=== PATIENT | male | born 1940 | race Caucasian/White ===

== ENCOUNTER 2018-07-21 13:09 | Emergency (ER) | payer MEDICARE, OTHER ==
[~2018-07-21] VITALS: Ht 162.6 cm; Wt 79.4 kg
[~2018-07-21 13:09] MED LIST: ACETAMINOPHEN325 M1 PO; ACTOS 30 MG TAB30 MG PO; ADULT LOW DOSE81 MG PO; ANTI-DIARRHEA2 MG PO; B12INJ IM; FERROUS GLUCON325 M4 PO; FISH OIL 1,0001 EAC8 PO; FLOMAX PO; FLOMAX0.4 MG PO; FLORINEF ACETA0.1 MG PO; IBUPROFEN 200200 M1 PO; LACTAID EXT4500 UNIT PO; LEVAQUIN 500 M500 M3 PO; LOPERAMIDE 2 MG2 MG PO; METHADONE HCL 110 M1 PO; NASONEX17 GM NS; NEURONTIN800 MG PO; NEXIUM40 MG PO; PRISTIQ100 MG PO; RESTASIS1 EACH OP; RHINOCORT AQUA8.6 GM; SERTRALINE HCL100 MG PO; SKELAXIN 800 M800 MG PO; TESTIM5 GM; TRAMADOL 50 MG50 MG PO; ULTRAM 50MG TAB50 MG PO; XANAX 0.25 MG0.25 MG PO; ZOFRAN4 MG PO; ZOLOFT100 MG PO; ZYPREXA5 MG PO
[2018-07-21] MEDS ORDERED: NORCO 5-325 TA1 EACH PO (13:35)
[2018-07-21] MEDS ORDERED: PROSCAR 5MG TABL5 MG PO (13:35)
[2018-07-21] MEDS ORDERED: SEROQUEL 25 MG25 M1 PO (13:35)
[2018-07-21] MEDS ORDERED: ZANAFLEX2 MG PO (13:35)
[2018-07-21] MEDS ORDERED: PRILOSEC 20 MG20 MG PO (13:36)
[2018-07-21] MEDS ORDERED: MAGOX 400400 MG PO (13:37)
[2018-07-21] MEDS ORDERED: CENTRUM SILVER1 EAC4 PO (13:37)
[2018-07-21 14:31] VITALS: BP 105/66
== END 2018-07-21 14:32 | disposition home or self-care (01) ==
LOC: M.ERS 13:09
DX: S63.253A Unspecified dislocation of left middle finger, initial encounter (principal); E11.9 Type 2 diabetes mellitus without complications; Z79.82 Long term (current) use of aspirin; Z79.899 Other long term (current) drug therapy; W22.8XXA Striking against or struck by other objects, initial encounter; Y93.89 Activity, other specified; Y92.89 Other specified places as the place of occurrence of the external cause; Y99.8 Other external cause status

== ENCOUNTER 2018-11-20 11:49 | Inpatient (IN) | payer MEDICARE, OTHER ==
[2018-11-20] VITALS (7 sets, daily range): BP systolic 101–120; BP diastolic 48–75
[~2018-11-20] VITALS: Ht 152.4 cm; Wt 74.4 kg
[~2018-11-20 11:49] MED LIST changes: +CENTRUM SILVER1 EAC4 PO; +MAGOX 400400 MG PO; +NORCO 5-325 TA1 EACH PO; +PRILOSEC 20 MG20 MG PO; +PROSCAR 5MG TABL5 MG PO; +SEROQUEL 25 MG25 M1 PO; +ZANAFLEX2 MG PO
[2018-11-20] MEDS ORDERED: ZOLOFT 50 MG TA50 MG PO (12:15)
[2018-11-20 12:33] LABS: ABSOLUTE EOSINOPHILS 0.2 thou/uL (0.0-0.7); ABSOLUTE LYMPHOCYTES 0.7 thou/uL (0.8-5.3); ABSOLUTE MONOCYTES 0.3 thou/uL (0.0-1.2); ABSOLUTE NEUTROPHILS 1.1 thou/uL (1.6-8.1); BASOPHILS 0.7 %; EOSINOPHILS 6.9 %; HEMATOCRIT 32.1 % (42.0-52.0); HEMOGLOBIN 10.8 gm/dL (14.0-18.0); LYMPHOCYTES 30.5 %; MCH 32.7 pg (26.0-34.0); MCHC 33.6 g/dL (28.0-37.0); MCV 97.3 fL (80.0-100.0); MONOCYTES 13.8 %; MPV 6.8 fl. (7.2-11.1); NUCLEATED RBCS 0 /100WBC; PLATELET COUNT* 122 thou/uL (150-400); POLYS 48.1 %; RBC 3.29 mil/uL (4.50-6.00); RDW-CV 13.1 % (10.5-14.5); WBC 2.4 thou/uL (4.0-11.0)
[2018-11-20 12:41] LABS: ANION GAP 2 mmol/L (7-16); BUN 29 mg/dL (7-18); CHLORIDE 107 mmol/L (98-107); CO2 31 mmol/L (21-32); CREATININE 1.4 mg/dL (0.6-1.3); GLUCOSE 131 mg/dL (70-99); POTASSIUM 4.4 mmol/L (3.5-5.1); SODIUM 140 mmol/L (136-145)
[2018-11-20 12:51] LABS: ALBUMIN 3.3 g/dL (3.4-5.0); ALKALINE PHOSPHATASE 110 U/L (46-116); LIPASE 54 U/L (73-393); NT-PRO BRAIN NAT PEPTIDE 165 pg/mL (<300); SGOT 26 U/L (15-37); SGPT 21 U/L (30-65); TOTAL BILIRUBIN 0.3 mg/dL (<0.1-1.0); TOTAL PROTEIN 6.1 g/dL (6.4-8.2); TROPONIN-I LEVEL <0.06 ng/mL (<0.06)
[2018-11-20 13:20] LABS: URINE BILIRUBIN NEGATIVE (Negative); URINE BLOOD TRACE (Negative); URINE CLARITY CLEAR; URINE COLOR YELLOW; URINE GLUCOSE-RANDOM NEGATIVE (Negative); URINE KETONES NEGATIVE (Negative); URINE LEUKOCYTES-REFLEX NEGATIVE (Negative); URINE NITRITE-REFLEX NEGATIVE (Negative); URINE PROTEIN NEGATIVE (Negative); URINE SPECIFIC GRAVITY 1.025 (1.005-1.030); URINE UROBILINOGEN 0.2 E.U./dl (0.2-1.0)
[2018-11-20 13:59] LABS: INFLUENZA A ANTIGEN None Detected (None Detect); INFLUENZA B ANTIGEN None Detected (None Detect)
--- NOTE | 2018-11-20 14:24 | EKG ---
[place] [address] ELECTROCARDIOGRAM REPORT Name: KEISHA MCCLENDON Room: [place] [address] ADM IN R.#: [id number] Admission: 11/20/18 Attend Phys: Keisha Charles MD Discharge: Date of : 38 Report #: [id number] THIS REPORT FOR: //name// [facility] ED Test Date: 2018-11-20 Test Time: 12:16:34 Pat Name: KEISHA MCCLENDON Department: Room: [facility] Gender: M Elastic Cutter: Baldomero LAYTON : 1940 Requested By: Johanna Washington Order Number: [id number] MD: Melvin Stafford Measurements Intervals [place]shaw Rate: 72 P: -18 HI: 199 QRS: -18 QRSD: 94 T: 3 QT: 379 QTc: 415 Interpretive Statements Sinus rhythm Borderline left axis deviation Abnormal R-wave progression, early transition Baseline wander in lead(s) V4,V5 Compared to ECG 12/05/2016 15:59:51 No significant changes Electronically Signed On 11-20-2018 14:24:18 INTERNET SITE DESIGNER by Melvin Stafford [email or web address] <ELECTRONICALLY SIGNED> By: Melvin Stafford MD, FACC 11/20/18 1424 1216 1216 Melvin Stafford MD, FAC /EPI
[2018-11-21] VITALS (7 sets, daily range): BP systolic 98–130; BP diastolic 45–74
[2018-11-21 04:50] LABS: HEMATOCRIT 29.7 % (42.0-52.0); HEMOGLOBIN 10.1 gm/dL (14.0-18.0); MCH 32.8 pg (26.0-34.0); MCV 96.5 fL (80.0-100.0); MPV 6.9 fl. (7.2-11.1); RBC 3.07 mil/uL (4.50-6.00); RDW-CV 13.1 % (10.5-14.5); WBC 2.8 thou/uL (4.0-11.0)
[2018-11-21 05:14] LABS: CALCIUM 7.6 mg/dL (8.5-10.1); CREATININE 1.3 mg/dL (0.6-1.3); MAGNESIUM 2.1 mg/dL (1.8-2.4); POTASSIUM 4.8 mmol/L (3.5-5.1)
[2018-11-22] VITALS: BP 105/53
[2018-11-22 04:00] VITALS: BP 119/64
[2018-11-22 05:16] LABS: HEMOGLOBIN 10.5 gm/dL (14.0-18.0); MCH 32.7 pg (26.0-34.0); MCHC 33.9 g/dL (28.0-37.0); MCV 96.5 fL (80.0-100.0); RBC 3.21 mil/uL (4.50-6.00); RDW-CV 12.9 % (10.5-14.5); WBC 3.7 thou/uL (4.0-11.0)
[2018-11-22 05:59] LABS: CALCIUM 8.3 mg/dL (8.5-10.1); CREATININE 1.3 mg/dL (0.6-1.3); MAGNESIUM 2.1 mg/dL (1.8-2.4); POTASSIUM 4.3 mmol/L (3.5-5.1); TOTAL BILIRUBIN 0.4 mg/dL (<0.1-1.0); TOTAL PROTEIN 5.7 g/dL (6.4-8.2)
[2018-11-22 08:00] VITALS: BP 123/81
--- NOTE | 2018-11-22 10:17 | CON ---
[address] [address] CONSULTATION Name: KEISHA MCCLENDON Room: [address] IN .R.#: [id number] Admission: 11/20/18 Attend Phys: Keisha Charles MD Discharge: Date of : 38 Report #: [id number] THIS REPORT FOR: //name// CC: Efrem Charles HISTORY OF PRESENT ILLNESS: The patient is a 77-year-old male who presents with lethargy and somnolence. Apparently, the patient has been falling asleep easily during the day. He tells me that he does not sleep well at night and wakes up several times at night with pain from scoliosis. He also does not feel rested when he wakes up in the morning. The patient sees Dr. Loaiza who is not practicing at the moment, so the patient is concerned about who he will follow up with as his primary care physician. He receives methadone 20 mg every 6 hours and at night. He is on quetiapine 25 mg at bedtime to help him sleep. He also takes sertraline 100 mg at bedtime. When the patient was admitted to the hospital. He was found to have a low white blood cell count in addition to being anemic. There was no evidence of a urinary tract infection. There was some evidence of dehydration. PAST MEDICAL HISTORY: Cardiac arrhythmia, scoliosis, orthostatic hypotension, gastroesophageal reflux, benign prostatic hypertrophy. PAST SURGICAL HISTORY: Pacemaker insertion, tonsillectomy, hernia repair, right rotator cuff repair. MEDICATIONS: Proscar 5 mg daily, quetiapine 25 mg at bedtime, magnesium 500 mg daily, multivitamin daily, Zoloft 100 mg at bedtime, methadone 20 mg 4 times a day, ibuprofen 400 mg q.4h. p.r.n. pain, vitamin B12 1000 mcg IM weekly, Florinef 1 tablet daily, ferrous sulfate 325 mg daily, hydrocodone 5 mg 4 times a day, tizanidine 2 mg 3 times a day, omeprazole 20 mg daily, aspirin 81 mg daily, gabapentin 800 mg 3 times a day, fish oil daily, tamsulosin 0.4 mg at bedtime, Nexium 40 mg daily. ALLERGIES: PROMETHAZINE. PHYSICAL EXAMINATION: VITAL SIGNS: Temperature 36.7, pulse rate 73, respiratory rate 16, blood pressure 125/57. Orthostatic blood pressures were done. The patient's lying blood pressure was 115/69, sitting blood pressure 113/73 and standing blood pressure 114/69, bedside pulse oximetry 97% on room air. LABORATORY WORK: White blood cell count 2.8, hemoglobin 10.1, hematocrit 29.7, MCV 96.5, platelet count 119,000. Urinalysis shows only trace blood. Chemistry: Sodium 141, potassium 4.8, chloride 110, carbon dioxide 28, BUN 26, [place] [address] CONSULTATION Name: KEISHA MCCLENDON Room: [address] IN [facility].#: [id number] Admission: 11/20/18 Attend Phys: Keisha Charles MD Discharge: Date of : 38 Report #: [id number] creatinine 1.3, GFR 53, glucose 86, lactic acid 0.7, calcium 7.6, magnesium 2.1. Iron 57, TIBC 165, iron saturation 35%. Total bilirubin 0.3, AST 26, ALT 21, alkaline phosphatase 110, creatinine kinase 331. Total protein 6.1, albumin 3.3, proBNP 165, lipase 54, B12 454, vitamin D 48.5, TSH 1.778. NEUROLOGIC EXAMINATION: Cranial nerves 2-12 are grossly intact. Motor exam demonstrates symmetrical strength in all 4 extremities with tone and bulk normal. Reflexes are symmetrical throughout. Plantar responses are flexor. Coordination reveals intact [id number]. IMPRESSION: The patient does not appear to have any significant cognitive dysfunction at this point. He was able to provide a very coherent and detailed history. I am concerned about the patient's medications, particularly methadone 80 mg daily, gabapentin 1586-8658 mg daily, quetiapine 25 mg at bedtime and sertraline 100 mg at bedtime and tizanidine 2 mg 3 times a day. All of these medications can cause drowsiness during the day, which will make it difficult for the patient to sleep at night. If the patient is having this much pain, I would recommend a pain management referral, which can be done as an outpatient. I would also try to reduce and perhaps discontinue some of his medications while he is in the hospital. I am going to discontinue tizanidine, which is well known to cause drowsiness. Perhaps trazodone could be given in place of quetiapine. Given the patient's age, the use of an antipsychotic at bedtime can be problematic. I thank you for your kind referral of the patient and we will continue to follow him with you. <ELECTRONICALLY SIGNED> By: Kaylene Randolph DO 11/22/18 1017 0944 [id number] Randolph DO /nt
[2018-11-22 12:00] VITALS: BP 134/81
[2018-11-22 16:00] VITALS: BP 125/72
[2018-11-22 20:00] VITALS: BP 132/78
[2018-11-23] VITALS (7 sets, daily range): BP systolic 104–144; BP diastolic 66–75
[2018-11-23 05:37] LABS: HEMATOCRIT 31.1 % (42.0-52.0); HEMOGLOBIN 10.6 gm/dL (14.0-18.0); MCH 32.8 pg (26.0-34.0); MCHC 34.2 g/dL (28.0-37.0); MCV 95.8 fL (80.0-100.0); MPV 7.2 fl. (7.2-11.1); RBC 3.25 mil/uL (4.50-6.00); RDW-CV 13.2 % (10.5-14.5); WBC 4.4 thou/uL (4.0-11.0)
[2018-11-23 06:00] LABS: CALCIUM 8.4 mg/dL (8.5-10.1); CREATININE 1.3 mg/dL (0.6-1.3); POTASSIUM 3.6 mmol/L (3.5-5.1)
[2018-11-23] MEDS ORDERED: TRAZODONE HCL100 MG PO (08:25)
--- NOTE | 2018-11-26 14:51 | CON ---
[address] [address] CONSULTATION Name: KEISHA MCCLENDON Room: [address] IN .R.#: [id number] Admission: 11/20/18 Attend Phys: Keisha Charles MD Discharge: 11/23/18 Date of : 38 Report #: [id number] THIS REPORT FOR: //name// CC: Efrem Charles REASON FOR CONSULT: Regurgitation, nausea and vomiting. REQUESTING PHYSICIAN: Keisha Charles MD HISTORY OF PRESENT ILLNESS: This is a 77-year-old male who was admitted to hospital with dizziness and falls. He also had been having symptoms of nausea and regurgitation. 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 The patient denies dysphagia, odynophagia, diarrhea and constipation. PAST MEDICAL HISTORY: Significant for Menetrier's disease, history of hypotension, anemia, B12 deficiency, GERD, depression, insomnia, pain, and pneumonia. ALLERGIES: Significant to PROMETHAZINE. MEDICATIONS: Please refer to MAR. SOCIAL HISTORY: The patient is , lives at home with his and a HEALTHCARE PROJECT MANAGER that takes care of him around the clock. He denies any tobacco or alcohol use. FAMILY HISTORY: Noncontributory. PHYSICAL EXAMINATION: VITAL SIGNS: Reveals blood pressure of 107/65, respirations 16, pulse 70, temperature 36.7. LUNGS: Clear. CARDIOVASCULAR: Regular. ABDOMEN: Soft, nontender, nondistended. Bowel sounds are positive. NEUROLOGIC: The patient is alert and oriented x 3. SKIN: The patient has a pacemaker. LABORATORY DATA: Reveal WBC of 2.8, hemoglobin 10.1, platelet is 119, MCV is 96.5. Sodium 141, potassium 4.8, BUN is 26, creatinine 1.3, magnesium 2.1, calcium 7.6. Iron saturation is 35. B12 is 454. ASSESSMENT AND PLAN: The patient with history of Menetrier's disease who has nausea, regurgitation and vomiting. He also has dizziness and falls. He is currently on a Holter monitor. We [place] consider [place] [address] CONSULTATION Name: KEISHA MCCLENDON Room: [address]#: [id number] Admission: 11/20/18 Attend Phys: Keisha Charles MD Discharge: 11/23/18 Date of : 38 Report #: [id number] stable. He may benefit from motility agents. We will continue PPI at this time. <ELECTRONICALLY SIGNED> By: Natasha Waldrop MD 11/26/18 1451 1632 2230Natasha Waldrop MD /nt
== END 2018-11-23 13:00 | disposition home or self-care (01) | DRG 91 ==
LOC: M.ERS 11:49 → M.TBA-ER 14:04 → M.2W 14:04
PROVIDERS: Family Medicine; Physician Assistant; ADMIT Internal Medicine
DX: G92 Toxic encephalopathy (principal); N17.0 Acute kidney failure with tubular necrosis; D61.818 Other pancytopenia; F11.20 Opioid dependence, uncomplicated; G89.29 Other chronic pain; R29.6 Repeated falls; K29.60 Other gastritis without bleeding; M41.9 Scoliosis, unspecified; G47.00 Insomnia, unspecified; K21.9 Gastro-esophageal reflux disease without esophagitis; N40.0 Benign prostatic hyperplasia without lower urinary tract symptoms; M50.322 Other cervical disc degeneration at C5-C6 level; M50.323 Other cervical disc degeneration at C6-C7 level; F32.9 Major depressive disorder, single episode, unspecified; E11.40 Type 2 diabetes mellitus with diabetic neuropathy, unspecified; E86.0 Dehydration; T40.3X5A Adverse effect of methadone, initial encounter; T42.6X5A Adverse effect of other antiepileptic and sedative-hypnotic drugs, initial encounter; Y92.89 Other specified places as the place of occurrence of the external cause; Z88.8 Allergy status to other drugs, medicaments and biological substances; Z95.0 Presence of cardiac pacemaker; Z79.82 Long term (current) use of aspirin; Z79.899 Other long term (current) drug therapy; Z87.01 Personal history of pneumonia (recurrent)

== ENCOUNTER 2021-10-24 11:22 | Emergency (ER) | payer MEDICARE, OTHER ==
[~2021-10-24] VITALS: Ht 165.1 cm; Wt 86.2 kg
[~2021-10-24 11:22] MED LIST changes: +TRAZODONE HCL100 MG PO; +ZOLOFT 50 MG TA50 MG PO
[2021-10-24] MEDS ORDERED: TIZANIDINE HCL4 M1 PO (12:04)
[2021-10-24] MEDS ORDERED: AUGMENTIN 875-1 EACH PO (12:52)
[2021-10-24 13:00] VITALS: BP 124/70
== END 2021-10-24 13:16 | disposition home or self-care (01) ==
LOC: M.ERS 11:22
DX: S41.052A Open bite of left shoulder, initial encounter (principal); E11.9 Type 2 diabetes mellitus without complications; Z20.3 Contact with and (suspected) exposure to rabies; Z88.8 Allergy status to other drugs, medicaments and biological substances; Z79.82 Long term (current) use of aspirin; Z79.899 Other long term (current) drug therapy; W55.51XA Bitten by raccoon, initial encounter; Y93.89 Activity, other specified; Y92.89 Other specified places as the place of occurrence of the external cause; Y99.9 Unspecified external cause status

== ENCOUNTER → 2021-10-27 | Outpatient (CLI) | payer MEDICARE, OTHER ==
[~2021-10-27] MED LIST changes: +AUGMENTIN 875-1 EACH PO; +TIZANIDINE HCL4 M1 PO
== END ==
LOC: M.LAB 08:07 → M.OPS 08:07 → M.ERS 08:07
DX: Z23 Encounter for immunization (principal)

== ENCOUNTER → 2021-10-30 | Outpatient (CLI) | payer MEDICARE, OTHER | LOC: M.OPS 08:22 | PROVIDERS: ATTEND Emergency Medicine Emergency Medical Services | DX: Z23 Encounter for immunization (principal) ==

== ENCOUNTER → 2021-11-06 | Outpatient (CLI) | payer MEDICARE, OTHER | LOC: M.OPS 07:47 | PROVIDERS: ATTEND Emergency Medicine Emergency Medical Services | DX: Z23 Encounter for immunization (principal) ==